=== PATIENT | female | born 1985 | race Caucasian/White ===

== ENCOUNTER 2017-08-17 16:06 | Emergency (ER) | payer SELFPAY ==
[~2017-08-17] VITALS: Ht 170.2 cm; Wt 85.0 kg
[2017-08-17 16:07] VITALS: BP 139/81; PULSE 79; RESP 14; TEMP 98.1; O2SAT 99
[2017-08-17] MEDS ORDERED: KEPP10002 PO (16:51)
--- NOTE | 2017-08-17 17:21 | PD ---
HPI Chief Complaint: Neuro Symptoms/ Deficits Time Seen by Provider: 17:12 Travel History International Travel<30 days: No Contact w/Intl Traveler<30days: No Traveled to known affect area: No History of Present Illness HPI 32-year-old female complains irritation in the left eye, and left-sided facial weakness. Patient stated symptoms started 4 days ago. Patient denies any headache. Patient denies any visual change. Patient complain left eye irritation and occasionally tearing from the left eye. Patient states that food and fluid has been dripping out from the left side of mouth. Patient denies any neck pain. Patient denies any chest pain or shortness of breath. Patient denies abdominal pain. Patient denies any focal weakness or numbness of the extremity. Patient denies any taste change. Patient denies any hearing problem. PFSH Past Medical History Seizures: Yes ?: Not LMP: 07/25/17 Past Surgical History Surgical History: No Previous Surgery Social History Alcohol Use: Yes (occ) Tobacco Use: No Substance Use: No Allergies-Medications (Allergen,Severity, Reaction): Coded Allergies: No Known Allergies (Unverified , 08/17/17) Reported Meds & Prescriptions Reported Meds & Active Scripts Active Reported Keppra (Levetiracetam) 1,000 Mg Tab Unknown Dose PO TID Review of Systems General / Constitutional: No: Fever Eyes: Positive: Tearing, No: Visual changes HENT: No: Headaches Cardiovascular: No: Chest Pain or Discomfort Respiratory: No: Shortness of Breath Gastrointestinal: No: Abdominal Pain Genitourinary: No: Dysuria Musculoskeletal: No: Pain Skin: No Rash Neurologic: No: Weakness Psychiatric: No: Depression Endocrine: No: Polydipsia Hematologic/Lymphatic: No: Easy Bruising Physical Exam Narrative GENERAL: Well-nourished, well-developed patient. SKIN: Focused skin assessment warm/dry. HEAD: Normocephalic. EYES: No scleral icterus. No injection or drainage. Pupils 2 mm equal reactive. NECK: Supple, trachea midline. No JVD or lymphadenopathy. CARDIOVASCULAR: Regular rate and rhythm without murmurs, gallops, or rubs. RESPIRATORY: Breath sounds equal bilaterally. No accessory muscle use. GASTROINTESTINAL: Abdomen soft, non-tender, nondistended. MUSCULOSKELETAL: No cyanosis, or edema. BACK: Nontender without obvious deformity. No CVA tenderness. Neurologic exam: Patient has weakness of muscle area of the left side of face including the forehead. Sensory function intact. Data Data Last Documented VS Vital Signs Date Time Temp Pulse Resp B/P (MAP) Pulse Ox O2 Delivery O2 Flow Rate FiO2 08/17/17 16:48 18 98 Room Air 08/17/17 16:07 98.1 79 139/81 (100) [facility] Medical Decision Making Medical Screen Exam Complete: Yes Emergency Medical Condition: Yes Differential Diagnosis Differential diagnosis including Rai's palsy, neuropathy, TIA, CVA. Narrative Course 32-year-old female with left-sided facial drooping. The symptom started 4 days ago. Diagnosis Primary Impression: Rai's palsy Patient Instructions: General Instructions Additional Instructions: Take medications as directed. artificial teardrop to left eye. Tape left- sided eyelid at night. Follow-up with personal physician and neurologist. Med/Other Pt SpecificInfo: Prescription(s) given Scripts Prednisone (Prednisone) 20 Mg Tab 20 MG PO BID, #10 TAB 0 Refills Prov: Julian Rutledge MD 08/17/17 Acyclovir (Acyclovir) 800 Mg Tab 800 MG PO 5 TIMES A DAY for Mgmt Viral Infection, #35 TAB 0 Refills Prov: Julian Rutledge MD 08/17/17 Disposition: 01 DISCHARGE HOME Condition: Stable Julian Rutledge MD Aug 17, 2017 17:21
[2017-08-17] MEDS ORDERED: ACYC800T PO (17:29)
[2017-08-17] MEDS ORDERED: PRED20 PO (17:29)
== END 2017-08-17 17:45 | disposition home or self-care (01) ==
LOC: NEPD 16:06
DX: G51.0 Bell's palsy (principal); G40.909 Epilepsy, unspecified, not intractable, without status epilepticus
CPT/HCPCS: 99283